=== PATIENT | female | born 1960 | race Asian ===

== ENCOUNTER 2024-03-09 11:37 | Outpatient (CLI) | payer MEDICARE, MEDICAID, SELFPAY | END 2024-03-09 11:38 | disposition home or self-care (01) | LOC: AMB 04-03 14:38 | PROVIDERS: Visit Provider Student in an Organized Health Care Education/Training Program | DX: S06.6XAA Traumatic subarachnoid hemorrhage with loss of consciousness status unknown, initial encounter (principal); S72.001A Fracture of unspecified part of neck of right femur, initial encounter for closed fracture | CPT/HCPCS: A0425; A0434 ==